=== PATIENT | female | born 1955 ===

== ENCOUNTER 2018-12-08 07:15 | Day surgery (SDC) | payer OTHER ==
[~2018-12-08 07:15] MED LIST: ALBUTEROL0.63 MG/3 IH; OPCICON ONE-ST1.5 MG PO; PERCOCET 10-321 EACH PO; [UNRECOGNIZED DRUG - OTHER]
[2018-12-08] MEDS ORDERED: PERCOCET 5-3251 EACH PO (09:35)
== END 2018-12-08 11:55 | disposition home or self-care (01) ==
LOC: CIR.AMB 07:15
DX: C20 Malignant neoplasm of rectum (principal)
CPT/HCPCS: 36561; C1751

== ENCOUNTER 2019-04-16 06:02 | Day surgery (SDC) | payer OTHER ==
[~2019-04-16 06:02] MED LIST changes: +PERCOCET 5-3251 EACH PO
== END 2019-04-16 12:18 | disposition home or self-care (01) ==
LOC: AMB-ENDOS 06:02
DX: C20 Malignant neoplasm of rectum (principal)